=== PATIENT | female | born 1985 | race Caucasian/White ===

== ENCOUNTER 2020-02-24 09:24 | Outpatient (REF) | payer OTHER, SELFPAY ==
[2020-02-24 11:41] LABS: Cholesterol 200 mg/dL; Glucose Fasting 95 mg/dL (60-99); HDL Cholesterol 68 mg/dL; LDL Cholesterol Calculated 117 mg/dl; Triglycerides 76 mg/dL
[2020-02-24 13:41] LABS: Estimated Average Glucose 108 mg/dL; Hemoglobin A1c % 5.4 %
== END 2020-02-24 09:25 | disposition home or self-care (01) ==
LOC: HO.HMGCLDS 09:24
PROVIDERS: PCP Internal Medicine; Visit Provider Internal Medicine
DX: R73.01 Impaired fasting glucose (principal); E78.5 Hyperlipidemia, unspecified
CPT/HCPCS: 36415; 80061; 82947; 83036

== ENCOUNTER 2021-03-11 11:14 | Outpatient (REF) | payer OTHER, SELFPAY ==
[2021-03-11 13:49] LABS: MANUAL DIFF FLAG NO
[2021-03-11 14:08] LABS: Basophils Percent Auto 0.6 % (0-2); Eosinophils Absolute Auto 0.1 X10*3/uL (0.0-0.4); Eosinophils Percent Auto 2.4 % (0-4); Hematocrit 39.7 % (37.0-47.0); Imm Gran Abs Auto 0.01 X10*3/uL (0.00-0.03); Imm Gran Pct Auto 0.2 % (0.0-0.4); Lymphocytes Percent Auto 40.1 % (20-40); Mean Corpuscular HGB Conc 32.7 g/dl (31.0-35.0); Mean Corpuscular Hemoglobin 29.1 pg (27.0-33.0); Monocytes Absolute Auto 0.4 X10*3/uL (0.1-1.2); Monocytes Percent Auto 7.7 % (2-11); Neutrophils Absolute Auto 2.4 x10*3/uL (2.0-8.3); Platelet Count 229 X10*3/uL (160-400); Red Blood Count 4.46 X10*6/uL (4.20-5.50); Red Cell Distribution Width 13.2 % (11.0-16.0); White Blood Count 4.9 X10*3/uL (4.8-10.8)
[2021-03-11 14:37] LABS: Alanine Aminotransferase 13 U/L (0-31); Albumin Level 4.6 g/dL (3.5-5.0); Alkaline Phosphatase 93 U/L (39-117); Anion Gap 12 (12-20); Aspartate Amino Transferase 15 U/L (5-31); Bilirubin Total 0.5 mg/dL (0.0-1.0); Blood Urea Nitrogen 13 mg/dL (9-16); Carbon Dioxide 27 mmol/L (22-29); Chloride 108 mmol/L (96-108); Cholesterol 203 mg/dL; Estimated Glomerular Filt Rate > 60; Glucose Fasting 94 mg/dL (60-99); HDL Cholesterol 83 mg/dL; LDL Cholesterol Calculated 111 mg/dl; Potassium 4.5 mmol/L (3.3-5.1); Sodium 142 mmol/L (135-145); Total Protein 7.4 g/dL (6.5-8.0); Triglycerides 46 mg/dL
[2021-03-11 15:02] LABS: TSH reflex Free T4 1.06 uIU/mL (0.32-4.0)
[2021-03-11 15:04] LABS: Vitamin B12 882 pg/mL (200-900)
== END 2021-03-11 11:15 | disposition home or self-care (01) ==
LOC: HO.HMGCLDS 11:14
PROVIDERS: Visit Provider Internal Medicine
DX: Z00.01 Encounter for general adult medical examination with abnormal findings (principal); R63.4 Abnormal weight loss; G43.909 Migraine, unspecified, not intractable, without status migrainosus
CPT/HCPCS: 36415; 80053; 80061; 82306; 82607; 82746; 84443; 85025

== ENCOUNTER 2022-03-24 11:24 | Outpatient (AMB) | payer OTHER, SELFPAY ==
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
[2022-03-24 11:30] VITALS: BP 98/62; PULSE 70; O2SAT 100; BMI 19.9
== END 2022-03-24 13:02 | disposition home or self-care (01) ==
LOC: HO.HMGC 11:24
PROVIDERS: PCP Internal Medicine; Visit Provider Internal Medicine
DX: Z00.00 Encounter for general adult medical examination without abnormal findings (principal)
CPT/HCPCS: 99499

== ENCOUNTER 2022-03-31 08:54 | Outpatient (REF) | payer OTHER, SELFPAY ==
[2022-03-31 11:19] LABS: MANUAL DIFF FLAG NO
[2022-03-31 11:26] LABS: Basophils Percent Auto 0.6 % (0-2); Eosinophils Absolute Auto 0.2 X10*3/uL (0.0-0.4); Eosinophils Percent Auto 2.8 % (0-4); Imm Gran Abs Auto 0.02 X10*3/uL (0.00-0.03); Imm Gran Pct Auto 0.4 % (0.0-0.4); Lymphocytes Absolute Auto 1.8 X10*3/uL (1.2-4.9); Lymphocytes Percent Auto 33.5 % (20-40); Mean Corpuscular HGB Conc 32.4 g/dl (31.0-35.0); Mean Corpuscular Hemoglobin 29.3 pg (27.0-33.0); Mean Corpuscular Volume 90.5 fL (80.0-98.0); Mean Platelet Volume 11.5 fL (9.4-12.3); Monocytes Absolute Auto 0.4 X10*3/uL (0.1-1.2); Monocytes Percent Auto 7.2 % (2-11); Neutrophils Percent Auto 55.5 % (45-73); Platelet Count 226 X10*3/uL (160-400); Red Blood Count 4.09 X10*6/uL (4.20-5.50); Red Cell Distribution Width 12.8 % (11.0-16.0); White Blood Count 5.4 X10*3/uL (4.8-10.8)
[2022-03-31 12:05] LABS: Alanine Aminotransferase 11 U/L (0-31); Aspartate Amino Transferase 15 U/L (5-31); Cholesterol 207 mg/dL; HDL Cholesterol 81 mg/dL; LDL Cholesterol Calculated 117 mg/dl; Triglycerides 47 mg/dL
[2022-03-31 12:14] LABS: TSH reflex Free T4 2.24 uIU/mL (0.32-4.0); Vitamin B12 883 pg/mL (200-900); Vitamin D 25-OH Total 36.8 ng/mL (>30)
== END 2022-03-31 08:55 | disposition home or self-care (01) ==
LOC: HO.HMGCLDS 08:54
PROVIDERS: PCP Internal Medicine; Visit Provider Internal Medicine
DX: Z00.00 Encounter for general adult medical examination without abnormal findings (principal); Z87.828 Personal history of other (healed) physical injury and trauma
CPT/HCPCS: 36415; 80061; 82306; 82607; 82746; 84443; 84450; 84460; 85025

== ENCOUNTER 2022-05-25 10:52 | Outpatient (REF) | payer OTHER, SELFPAY ==
--- NOTE | ~2022-05-25 | CT_ITS ---
EXAMINATION: CT HEAD WITHOUT CONTRAST CLINICAL INFORMATION: Headache unspecified. COMPARISON: MRI scan of the brain 06/26/2009. TECHNIQUE: Multidetector CT imaging of the head was obtained without the use of intravenous contrast. Coronal and sagittal reformatted images were generated at the technologist workstation. This CT examination was performed using dose optimization techniques as appropriate, variously including the following: *Automated exposure control *Adjustment of mA and/or kV according to patient size (this includes techniques or standardized protocols for targeted exams where dose is matched to indication/reason for exam; i.e. extremities or head) *Use of iterative reconstruction technique DLP: 591 mGy-cm. FINDINGS: There is no evidence of acute intracranial hemorrhage or territorial infarction. No abnormal mass-effect or midline shift is seen. There is a 2 mm focus of calcification in the anterior 3rd ventricle (image 27/69, series 4), which is nonspecific. It may be a vascular calcification, but a small calcified colloid cyst cannot be excluded. There is no mass in this area on the prior study. Noble to white matter differentiation is well preserved. No extra-axial fluid collections are identified. The ventricles and sulci are normal in size. There is no abnormal attenuation within the brain parenchyma. The osseous structures and soft tissues are normal. The mastoid air cells and visualized paranasal sinuses are well aerated.. CT/CT head/brain wo IV con IMPRESSION: 1. There are no acute bleeds or infarcts. Brain parenchymal signal is normal. 2. There is a 2 mm focus of calcification in the anterior 3rd ventricle which is nonspecific and may be a vascular calcification or may be consistent with a small calcified colloid cyst. This could be further evaluated with MRI scan the brain without and with contrast.
== END 2022-05-25 10:53 | disposition home or self-care (01) ==
LOC: HO.CT 10:52
PROVIDERS: PCP Internal Medicine; Visit Provider Internal Medicine
DX: R51.9 Headache, unspecified (principal)
CPT/HCPCS: 70450

== ENCOUNTER 2022-08-18 13:54 | Outpatient (REF) | payer OTHER, SELFPAY ==
[2022-08-23 03:24] LABS: Lyme Abs Screen <0.90 index
== END 2022-08-18 13:55 | disposition home or self-care (01) ==
LOC: HO.HMGCLDS 13:54
PROVIDERS: PCP Internal Medicine; Visit Provider Internal Medicine
DX: T14.8XXA Other injury of unspecified body region, initial encounter (principal); W57.XXXA Bitten or stung by nonvenomous insect and other nonvenomous arthropods, initial encounter; Y93.9 Activity, unspecified; Y92.9 Unspecified place or not applicable; Y99.9 Unspecified external cause status
CPT/HCPCS: 36415; 86617; 86618

== ENCOUNTER 2022-09-09 09:57 | Outpatient (AMB) | payer OTHER, SELFPAY ==
[2022-09-09 10:02] VITALS: BP 106/76; PULSE 72; O2SAT 99; BMI 20.9
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
== END 2022-09-09 11:29 | disposition home or self-care (01) ==
PROVIDERS: Visit Provider Nurse Practitioner Family
DX: F07.81 Postconcussional syndrome (principal); R25.9 Unspecified abnormal involuntary movements; H54.7 Unspecified visual loss; G43.109 Migraine with aura, not intractable, without status migrainosus; R42 Dizziness and giddiness
CPT/HCPCS: 99204

== ENCOUNTER → 2022-09-09 09:57 | Outpatient (BNVA) | payer OTHER, SELFPAY | PROVIDERS: Visit Provider Nurse Practitioner Family | DX: F07.81 Postconcussional syndrome (principal); R25.9 Unspecified abnormal involuntary movements; H54.7 Unspecified visual loss; G43.109 Migraine with aura, not intractable, without status migrainosus; R42 Dizziness and giddiness | CPT/HCPCS: 99202 ==

== ENCOUNTER 2022-09-27 13:04 | Outpatient (REF) | payer OTHER, SELFPAY ==
--- NOTE | 2022-09-27 13:06 | EEG_ITS ---
FINDINGS: Waking background activity consists of a well-defined, moderate-voltage posterior 10 to 11 hertz alpha frequency intermixed anteriorly with low voltage fast frequencies. Photic stimulation is without activation. hyperventilation produces no change. No sleep stages are identified. No focal, lateralizing, or paroxysmal discharges are seen. IMPRESSION: This waking EEG is within normal limits. MD CLAIRE Ricks/ANDREA / [id number]
== END 2022-09-27 13:05 | disposition home or self-care (01) ==
LOC: HO.NEURO 13:04
PROVIDERS: Visit Provider Nurse Practitioner Family
DX: G43.109 Migraine with aura, not intractable, without status migrainosus (principal); H54.7 Unspecified visual loss; R25.9 Unspecified abnormal involuntary movements
CPT/HCPCS: 95816

== ENCOUNTER 2022-11-02 10:00 | Outpatient (RCR) | payer OTHER, SELFPAY ==
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
--- NOTE | 2022-11-03 08:05 | MHC.PT.DC ---
[facility] [place] [facility] [place] [facility] [place] [facility] [address] Jessica Lopez [address] [phone] F: [phone] F: [phone] F: [phone] F: [phone] Physical Therapy Discharge Report Diagnosis: This is a 37 yo female presenting to skilled PT with a script for cervicalgia. Date of Surgery: Date of Evaluation: 05/12/22 Date of Discharge: 11/02/22 Treatments to Date: 17 Cancellations to Date: 0 No Shows to Date: 0 Discharge Status: Achieved Goals Improved Function Independent with HEP Patient Elected to Stop Discharge Summary: Pt has had 17 visits of PT. She now demos WNL cervical ROM with mild end range stiffness. Overall she demos good shoulder strength however continues to have L sh abd pain at end range and crepitus. COONEY's and fogginess improved with occurrence no more than 1x/week at most now. Pt I with HEP and will contact us if further therapy is needed in the future. Electronically signed by: Mercy Saenz PT Please sign and return to therapist. Thank you for your referral.
== END 2022-11-03 08:05 | disposition home or self-care (01) ==
LOC: HO.PTCHIC 10:00
PROVIDERS: PCP Internal Medicine; Visit Provider Internal Medicine
DX: M54.2 Cervicalgia (principal)
CPT/HCPCS: 97110; 97140; 97162; 97164

== ENCOUNTER 2022-12-13 10:17 | Outpatient (REF) | payer OTHER, SELFPAY ==
--- NOTE | ~2022-12-13 | MR_ITS ---
EXAMINATION: MR ANGIOGRAPHY HEAD CLINICAL INFORMATION: Headaches and eye pain. COMPARISON: CT scan of the head 05/25/2022. TECHNIQUE: 3D time of flight MR angiography of the intracranial vasculature was obtained. Reformatted images were generated at the technologist workstation and source images were reviewed along with rotating MIPs. The degree of stenosis is based off NASCET criteria. FINDINGS: In the anterior circulation, the distal internal carotid arteries within the neck appear normal. The intracranial internal carotid arteries and their bifurcations appear normal. The middle and anterior cerebral arteries bilaterally demonstrate normal caliber with no evidence of focal stenosis, aneurysm or vascular malformation. The anterior communicating artery is normal. In the posterior circulation, the right vertebral artery is dominant. The vertebral arteries intradurally have uniform caliber. The basilar artery appears normal. The posterior cerebral arteries have normal caliber. MR/MR angio head wo con IMPRESSION: MR angiography of the intracranial circulation does not demonstrate focal stenosis, aneurysm or vascular malformation. The study is within normal limits.
== END 2022-12-13 10:18 | disposition home or self-care (01) ==
LOC: HO.MRI 10:17
PROVIDERS: PCP Internal Medicine; Visit Provider Nurse Practitioner Family
DX: G43.109 Migraine with aura, not intractable, without status migrainosus (principal); H54.7 Unspecified visual loss
CPT/HCPCS: 70544

== ENCOUNTER → 2023-03-22 15:13 | Outpatient (BNVA) | payer OTHER, SELFPAY | PROVIDERS: PCP Internal Medicine; Visit Provider Nurse Practitioner Family | DX: F07.81 Postconcussional syndrome (principal); G43.109 Migraine with aura, not intractable, without status migrainosus; H54.7 Unspecified visual loss; R25.9 Unspecified abnormal involuntary movements | CPT/HCPCS: 99212 ==

== ENCOUNTER 2023-03-22 15:18 | Outpatient (AMB) | payer OTHER, SELFPAY ==
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
[2023-03-22 15:25] VITALS: BP 120/62; PULSE 69; O2SAT 99; BMI 21.6
== END 2023-03-22 16:02 | disposition home or self-care (01) ==
PROVIDERS: PCP Internal Medicine; Visit Provider Nurse Practitioner Family
DX: G44.309 Post-traumatic headache, unspecified, not intractable (principal); F07.81 Postconcussional syndrome; H54.7 Unspecified visual loss; R25.9 Unspecified abnormal involuntary movements
CPT/HCPCS: 99214

== ENCOUNTER 2023-03-29 10:43 | Outpatient (AMB) | payer OTHER, SELFPAY ==
[2023-03-29 11:31] VITALS: BP 100/64; PULSE 68; O2SAT 100; BMI 21.5
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
== END 2023-03-29 12:38 | disposition home or self-care (01) ==
PROVIDERS: Visit Provider Internal Medicine
DX: Z00.00 Encounter for general adult medical examination without abnormal findings (principal); K59.00 Constipation, unspecified; R10.13 Epigastric pain; Z28.20 Immunization not carried out because of patient decision for unspecified reason
CPT/HCPCS: 99395

== ENCOUNTER 2023-03-29 12:37 | Outpatient (REF) | payer OTHER, SELFPAY ==
[2023-03-29 15:57] LABS: MANUAL DIFF FLAG NO
[2023-03-29 16:04] LABS: Basophils Percent Auto 0.6 % (0-2); Eosinophils Absolute Auto 0.1 X10*3/uL (0.0-0.4); Eosinophils Percent Auto 1.5 % (0-4); Hematocrit 39.6 % (37.0-47.0); Hemoglobin 13.2 g/dl (12.0-16.0); Imm Gran Abs Auto 0.01 X10*3/uL (0.00-0.03); Imm Gran Pct Auto 0.2 % (0.0-0.4); Lymphocytes Absolute Auto 2.2 X10*3/uL (1.2-4.9); Lymphocytes Percent Auto 40.3 % (20-40); Mean Corpuscular HGB Conc 33.3 g/dl (31.0-35.0); Mean Corpuscular Hemoglobin 29.9 pg (27.0-33.0); Mean Corpuscular Volume 89.6 fL (80.0-98.0); Mean Platelet Volume 11.4 fL (9.4-12.3); Monocytes Absolute Auto 0.4 X10*3/uL (0.1-1.2); Monocytes Percent Auto 8.1 % (2-11); Neutrophils Absolute Auto 2.7 x10*3/uL (2.0-8.3); Neutrophils Percent Auto 49.3 % (45-73); Platelet Count 213 X10*3/uL (160-400); Red Blood Count 4.42 X10*6/uL (4.20-5.50); Red Cell Distribution Width 12.2 % (11.0-16.0); White Blood Count 5.4 X10*3/uL (4.8-10.8)
[2023-03-29 16:24] LABS: Anion Gap 10 (12-20); Blood Urea Nitrogen 13 mg/dL (9-16); Calcium 9.3 mg/dL (8.4-10.2); Carbon Dioxide 27 mmol/L (22-29); Chloride 106 mmol/L (96-108); Cholesterol 242 mg/dL (<200); Estimated Glomerular Filt Rate > 60; Glucose Fasting 90 mg/dL (60-99); HDL Cholesterol 91 mg/dL (>40); LDL Cholesterol Calculated 142 mg/dL (<100); Potassium 3.9 mmol/L (3.3-5.1); Sodium 139 mmol/L (135-145); Triglycerides 46 mg/dL (<150)
[2023-03-29 16:43] LABS: TSH reflex Free T4 1.23 uIU/mL (0.32-4.0); Vitamin D 25-OH Total 64.2 ng/mL (>30)
[2023-03-29 16:56] LABS: Folate 18.1 ng/mL (> or = 4.0); Vitamin B12 1172 pg/mL (200-900)
== END 2023-03-29 12:38 | disposition home or self-care (01) ==
LOC: HO.HMGCLDS 12:37
PROVIDERS: PCP Internal Medicine; Visit Provider Internal Medicine
DX: Z00.00 Encounter for general adult medical examination without abnormal findings (principal); Z13.1 Encounter for screening for diabetes mellitus; Z13.220 Encounter for screening for lipoid disorders; K59.00 Constipation, unspecified; Z87.828 Personal history of other (healed) physical injury and trauma
CPT/HCPCS: 36415; 80048; 80061; 82306; 82607; 82746; 84443; 85025

== ENCOUNTER 2023-05-30 08:19 | Outpatient (REF) | payer OTHER, SELFPAY ==
--- NOTE | ~2023-05-30 | FL_ITS ---
EXAMINATION: XR FLUOROSCOPY UPPER GI WITH AIR CLINICAL INFORMATION: Epigastric pain COMPARISON: None TECHNIQUE: Fluoroscopic air contrast upper GI examination was performed utilizing standard techniques with thin and thick barium and effervescent granules. Numerous spot images were obtained. FINDINGS: Dual and single contrast images of the esophagus demonstrate normal caliber, and contour. There is felinization of the mid esophageal mucosa. In the midesophagus ventrally, there is a focal region of irregular mucosa which may represent a focus of esophagitis. (RF 1-3, image 44 of 64). No mass or stricture. No evidence of hiatus hernia identified. Gastroesophageal reflux is seen up to the midesophagus. Dual contrast and single contrast images of the stomach demonstrated a normal contour. The gastric rugal folds appear mildly thickened. There are multiple tiny foci of contrast pooling in the fundus and body the stomach that may represent small superficial aphthous ulcers. No masses are present. Contrast freely passed into the gastric antrum and duodenal bulb without delay. Single and air-contrast images of the duodenal bulb demonstrate no abnormality. The duodenal sweep has a normal appearance, course, and mucosal fold appearance. No malrotation. The imaged proximal jejunum has a normal fold pattern and caliber. FLUOROSCOPY TIME: 3 minutes 18 seconds Number of Spot Images: 18 Number of Cine: 10 DOSE AREA PRODUCT: 1350 uGy-m2 (microgray-meter squared) FL/FL upper GI w air IMPRESSION: 1. Felinization of the mid esophageal mucosa. This is a benign finding that is associated with esophageal reflux. 2. Moderate gastroesophageal reflux. Mid esophageal ventral focus of mucosal irregularity, suspect small ulcer or erosion. 3. Thickened gastric rugal folds. In addition there are multiple tiny foci of contrast pooling in the fundus and body the stomach. These findings are suggestive of erosive gastritis. Recommend correlation with EGD. This procedure was performed by Drake Henley PA-C, and supervised by Dr. Fernandez
== END 2023-05-30 08:20 | disposition home or self-care (01) ==
LOC: HO.XRAY 08:19
PROVIDERS: PCP Internal Medicine; Visit Provider Internal Medicine
DX: R10.13 Epigastric pain (principal)
CPT/HCPCS: 74246

== ENCOUNTER → 2023-05-30 08:20 | Outpatient (BNV) | payer OTHER, SELFPAY | PROVIDERS: PCP Internal Medicine; Visit Provider Physician Assistant Surgical | DX: R10.13 Epigastric pain (principal) | CPT/HCPCS: 74246 ==

== ENCOUNTER 2023-06-13 10:00 | Outpatient (AMB) | payer OTHER, SELFPAY ==
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
[2023-06-13 10:10] VITALS: BP 125/66; PULSE 87; BMI 21.5
== END 2023-06-13 11:12 | disposition home or self-care (01) ==
PROVIDERS: PCP Internal Medicine; Visit Provider Internal Medicine
DX: K21.9 Gastro-esophageal reflux disease without esophagitis (principal); Z88.9 Allergy status to unspecified drugs, medicaments and biological substances; R10.13 Epigastric pain; R13.19 Other dysphagia; R93.3 Abnormal findings on diagnostic imaging of other parts of digestive tract
CPT/HCPCS: 99204

== ENCOUNTER → 2023-06-13 10:00 | Outpatient (BNVA) | payer OTHER, SELFPAY | PROVIDERS: PCP Internal Medicine; Visit Provider Internal Medicine | DX: K21.9 Gastro-esophageal reflux disease without esophagitis (principal); K29.70 Gastritis, unspecified, without bleeding; R10.13 Epigastric pain; R13.19 Other dysphagia; R93.3 Abnormal findings on diagnostic imaging of other parts of digestive tract; Z88.9 Allergy status to unspecified drugs, medicaments and biological substances | CPT/HCPCS: 99202 ==

== ENCOUNTER → 2023-06-30 10:53 | Outpatient (BNVA) | payer OTHER, SELFPAY | PROVIDERS: PCP Internal Medicine; Visit Provider Nurse Practitioner Family ==

== ENCOUNTER 2023-09-13 11:40 | Outpatient (REF) | payer OTHER, SELFPAY ==
--- NOTE | ~2023-09-13 | XR_ITS ---
EXAMINATION: XR CERVICAL SPINE CLINICAL INFORMATION: Cervicalgia COMPARISON: MRI of the cervical spine October 2014. Images not available. TECHNIQUE: 6 views of the cervical spine, inclusive of flexion and extension views, were obtained. FINDINGS: The vertebral alignment is normal. No intrinsic bony abnormality. The disc heights and neural foramina are well maintained. The endplates and posterior elements are normal. No fracture or subluxation. The surrounding prevertebral soft tissues are unremarkable. Normal translation with flexion and extension. XR/XR cervical spine w flex/ext IMPRESSION: Normal x-ray series of the cervical spine including flexion and extension views
== END 2023-09-13 11:41 | disposition home or self-care (01) ==
LOC: HO.HMGCX 11:40
PROVIDERS: PCP Internal Medicine; Visit Provider Nurse Practitioner Family
DX: M54.2 Cervicalgia (principal)
CPT/HCPCS: 72052

== ENCOUNTER 2023-10-18 10:40 | Outpatient (AMB) | payer OTHER, SELFPAY ==
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
== END 2023-10-18 12:16 | disposition home or self-care (01) ==
LOC: HO.HSMS 10:40
PROVIDERS: PCP Internal Medicine; Visit Provider Nurse Practitioner Family
DX: G43.109 Migraine with aura, not intractable, without status migrainosus (principal); M54.2 Cervicalgia; H53.9 Unspecified visual disturbance
CPT/HCPCS: 99214

== ENCOUNTER → 2023-10-18 10:40 | Outpatient (BNVA) | payer OTHER, SELFPAY | PROVIDERS: PCP Internal Medicine; Visit Provider Nurse Practitioner Family ==

== ENCOUNTER 2023-11-09 10:52 | Outpatient (AMB) | payer OTHER, SELFPAY ==
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
[2023-11-09 11:06] VITALS: BP 118/74; PULSE 88; O2SAT 98; BMI 20.6
== END 2023-11-09 12:41 | disposition home or self-care (01) ==
PROVIDERS: PCP Internal Medicine; Visit Provider Physician Assistant
DX: J01.90 Acute sinusitis, unspecified (principal)

== ENCOUNTER 2023-11-09 10:52 | Outpatient (REF) | payer OTHER, SELFPAY ==
[2023-11-09 14:16] LABS: Influenza A PCR NEGATIVE (Negative); Influenza B PCR NEGATIVE (Negative); Resp Syncy Virus RNA Qual PCR NEGATIVE (Negative); SARS COV2 PCR INHOUSE NEGATIVE (Negative)
== END 2023-11-09 10:53 | disposition home or self-care (01) ==
LOC: HO.LAB 10:52
PROVIDERS: Physician Assistant; PCP Internal Medicine
DX: J01.90 Acute sinusitis, unspecified (principal); J06.9 Acute upper respiratory infection, unspecified
CPT/HCPCS: 0241U; 99212

== ENCOUNTER 2024-02-16 09:30 | Day surgery (SDC) | payer OTHER, SELFPAY ==
[2024-02-16 10:32] VITALS: BMI 20.3
[2024-02-16 10:34] VITALS: BP 114/68; PULSE 87; RESP 14; TEMP 36.8; O2SAT 100
[2024-02-16 10:38] LABS: UPreg QC Valid YES; Urine Pregnancy NEGATIVE (NEGATIVE)
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
[2024-02-16] MEDS: Lactated Ringers 1,000 ML 100 ML IVCONT (10:56)
--- NOTE | 2024-02-16 11:35 | P.OP_ITS ---
Operative Note Operative Note Date of Service: 02/16/24 Narrative: Procedure: Esophagogastroduodenoscopy Endoscopist: Annabelle Davalos MD Indication: Dysphagia Anesthesia Provider: Héctor Colon MD Anesthesia Type: MAC ?? EGD Procedure:?? The procedure, indications, preparation and potential complications were reviewed with the patient, who indicated understanding and gave written informed consent to proceed. A physical exam was performed. The endoscope was introduced through the mouth, and advanced to the second part of duodenum. The mucosa was carefully examined on slow withdrawal of the endoscope. The patient tolerated the procedure well. There were no immediate complications.? ? EGD Findings:? * Esophagus:? Normal mucosa noted in the entire esophagus. The Z line was at 42 cm. Middle and lower esophagus forceps biopsies were obtained to rule out eosinophilic esophagitis. * Stomach:? Normal mucosa was noted in the stomach. Retroflexion was performed in the cardia. Random cold forceps gastric biopsies were taken to rule out H Pylori infection. * Duodenum:?Erythema and erosions noted in the duodenal bulb. Remaining mucosa normal to the extent examined. Cold forceps biopsies were taken from duodenal bulb and second portion of the duodenum to rule out ? EGD Impressions:? * Normal esophagus (biopsy) * Normal stomach (biopsy) * Duodenitis (biopsy) ?? Recommendations:?? * Follow biopsy results. Our office will call or send a letter with results within 7-10 days. * Start daily PPI therapy. * If H pylori +, patient will be prescribed eradication therapy followed by test of cure. * Avoid NSAIDs. Above has been reviewed with the patient.
[2024-02-16 11:39] VITALS: BP 99/61; PULSE 76; RESP 17; TEMP 36.4; O2SAT 100
[2024-02-16 11:54] VITALS: BP 121/74; PULSE 76; RESP 16; O2SAT 100
== END 2024-02-16 12:35 | disposition home or self-care (01) ==
PROVIDERS: Nurse Practitioner; PCP Internal Medicine; Visit Provider Internal Medicine
PROC: 0DJ08ZZ Inspection of Upper Intestinal Tract, Via Natural or Artificial Opening Endoscopic (ICD-10-PCS; CPT 43235; principal; 2024-02-16 11:10)
DX: K29.80 Duodenitis without bleeding (principal); R13.19 Other dysphagia; K21.9 Gastro-esophageal reflux disease without esophagitis; R10.13 Epigastric pain; R93.3 Abnormal findings on diagnostic imaging of other parts of digestive tract; D50.9 Iron deficiency anemia, unspecified; E78.5 Hyperlipidemia, unspecified; Z88.9 Allergy status to unspecified drugs, medicaments and biological substances
CPT/HCPCS: 43239; 81025; 88305; 88313; 88342; J2003; J2704

== ENCOUNTER → 2024-02-16 09:30 | Outpatient (BNV) | payer OTHER, SELFPAY | PROVIDERS: PCP Internal Medicine; Visit Provider Internal Medicine | DX: R13.10 Dysphagia, unspecified (principal); K29.80 Duodenitis without bleeding | CPT/HCPCS: 43239 ==

== ENCOUNTER 2024-03-04 15:52 | Outpatient (AMB) | payer OTHER, SELFPAY ==
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
[2024-03-04 15:56] VITALS: BP 127/57; PULSE 83; BMI 20.1
== END 2024-03-04 16:12 | disposition home or self-care (01) ==
PROVIDERS: PCP Internal Medicine; Visit Provider Internal Medicine
DX: J02.9 Acute pharyngitis, unspecified (principal); K29.80 Duodenitis without bleeding
CPT/HCPCS: 99213

== ENCOUNTER → 2024-03-04 15:52 | Outpatient (BNVA) | payer OTHER, SELFPAY | PROVIDERS: PCP Internal Medicine; Visit Provider Internal Medicine | DX: J02.9 Acute pharyngitis, unspecified (principal); K29.80 Duodenitis without bleeding | CPT/HCPCS: 99212 ==

== ENCOUNTER 2024-04-02 09:02 | Outpatient (REF) | payer OTHER, SELFPAY ==
[2024-04-02 13:03] LABS: MANUAL DIFF FLAG NO
[2024-04-02 13:23] LABS: Basophils Percent Auto 0.4 % (0-2); Eosinophils Absolute Auto 0.2 X10*3/uL (0.0-0.4); Eosinophils Percent Auto 2.5 % (0-4); Hemoglobin 12.1 g/dl (12.0-16.0); Imm Gran Abs Auto 0.02 X10*3/uL (0.00-0.03); Imm Gran Pct Auto 0.3 % (0.0-0.4); Lymphocytes Absolute Auto 2.1 X10*3/uL (1.2-4.9); Lymphocytes Percent Auto 31.6 % (20-40); Mean Corpuscular HGB Conc 32.7 g/dl (31.0-35.0); Mean Corpuscular Hemoglobin 29.2 pg (27.0-33.0); Mean Corpuscular Volume 89.2 fL (80.0-98.0); Mean Platelet Volume 11.1 fL (9.4-12.3); Monocytes Absolute Auto 0.5 X10*3/uL (0.1-1.2); Monocytes Percent Auto 7.6 % (2-11); Neutrophils Absolute Auto 3.9 x10*3/uL (2.0-8.3); Neutrophils Percent Auto 57.6 % (45-73); Platelet Count 237 X10*3/uL (160-400); Red Blood Count 4.15 X10*6/uL (4.20-5.50); Red Cell Distribution Width 12.8 % (11.0-16.0); White Blood Count 6.7 X10*3/uL (4.8-10.8)
[2024-04-02 13:34] LABS: Alanine Aminotransferase 13 U/L (0-31); Albumin Level 4.3 g/dL (3.5-5.0); Alkaline Phosphatase 51 U/L (39-117); Anion Gap 9 (12-20); Aspartate Amino Transferase 20 U/L (5-31); Bilirubin Total 0.4 mg/dL (0.0-1.0); Blood Urea Nitrogen 14 mg/dL (9-16); Carbon Dioxide 25 mmol/L (22-29); Chloride 110 mmol/L (96-108); Estimated Glomerular Filt Rate > 60; Glucose Fasting 100 mg/dL (60-99); Magnesium 2.1 mg/dL (1.6-2.6); Sodium 140 mmol/L (135-145); Total Protein 7.5 g/dL (6.5-8.0)
[2024-04-02 13:55] LABS: TSH reflex Free T4 2.14 uIU/mL (0.32-4.0); Vitamin D 25-OH Total 112.4 ng/mL (>30)
[2024-04-02 14:07] LABS: Folate 10.6 ng/mL (> or = 4.0); Vitamin B12 946 pg/mL (200-900)
== END 2024-04-02 09:03 | disposition home or self-care (01) ==
LOC: HO.HMGCLDS 09:02
PROVIDERS: PCP Internal Medicine; Visit Provider Internal Medicine
DX: Z00.01 Encounter for general adult medical examination with abnormal findings (principal); K29.80 Duodenitis without bleeding; M54.2 Cervicalgia; G43.909 Migraine, unspecified, not intractable, without status migrainosus; Z83.49 Family history of other endocrine, nutritional and metabolic diseases; Z71.89 Other specified counseling
CPT/HCPCS: 36415; 80053; 82306; 82607; 82746; 83735; 84443; 85025; 96127; 99395; 99497

== ENCOUNTER 2024-04-02 09:02 | Outpatient (AMB) | payer OTHER, SELFPAY ==
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
[2024-04-02 10:03] VITALS: BP 100/60; PULSE 69; RESP 16; TEMP 37; O2SAT 100; BMI 20.4
== END 2024-04-02 10:39 | disposition home or self-care (01) ==
PROVIDERS: PCP Internal Medicine; Visit Provider Internal Medicine
DX: Z00.01 Encounter for general adult medical examination with abnormal findings (principal); G43.109 Migraine with aura, not intractable, without status migrainosus; Z71.89 Other specified counseling; Z83.49 Family history of other endocrine, nutritional and metabolic diseases; Z28.20 Immunization not carried out because of patient decision for unspecified reason; Z00.00 Encounter for general adult medical examination without abnormal findings

== ENCOUNTER 2024-04-29 11:21 | Outpatient (AMB) | payer OTHER, SELFPAY ==
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
== END 2024-04-29 11:30 | disposition home or self-care (01) ==
PROVIDERS: PCP Internal Medicine; Visit Provider Nurse Practitioner Family
DX: G43.109 Migraine with aura, not intractable, without status migrainosus (principal); M54.2 Cervicalgia; H53.9 Unspecified visual disturbance
CPT/HCPCS: 99214